=== PATIENT | female | born 1985 | race Caucasian/White ===

== ENCOUNTER → 2016-09-15 | Outpatient (CLI) | payer SELFPAY ==
[2016-09-15 14:51] LABS: BASOPHILS # (AUTO) 0.02 10*3/UL; BASOPHILS % (AUTO) 0.2 % (0-1); EOSINOPHILS % (AUTO) 0.6 % (0-8); HEMATOCRIT 37.4 % (37.0-47.0); HEMOGLOBIN 12.8 g/dL (12.0-16.0); IMM GRAN % (AUTO) 0.2 % (0-5); IMM GRAN# (AUTO) 0.02 10*3/UL; LYMPHOCYTES # (AUTO) 1.73 10*3/uL; MEAN CORPUSCULAR HEMOGLOBIN 28.9 PG (27-31); MEAN CORPUSCULAR HGB CONC 34.2 g/dL (33-37); MEAN PLATELET VOLUME 9.5 FL (7.4-12.2); MONOCYTES % (AUTO) 6.2 % (5-15); NEUTROPHILS # (AUTO) 7.18 10*3/UL; NEUTROPHILS % (AUTO) 74.8 % (50-80); RDW COEFFICIENT OF VARIATION 13.5 % (11.5-14.5); RED BLOOD COUNT 4.43 10^6/uL (4.20-5.40); WHITE BLOOD COUNT 9.61 10^3/uL (4.8-10.8)
[2016-09-15 14:58] LABS: PLATELET MORPHOLOGY COMMENT NORMAL MORPHOLOGY (NORM)
[2016-09-15 15:06] LABS: PRENATAL QUESTION YES (Y)
[2016-09-15 15:18] LABS: HIV ANTIBODY NEGATIVE (N); HIV-1 P24 ANTIGEN NEGATIVE (N)
[2016-09-18 09:32] LABS: HEP B SURFACE AG Negative (Negative)
[2016-09-18 13:56] LABS: RUBELLA IGG INDEX 5.1 (()); SYPHILIS IGG WITH REFLEX Negative (Negative)
== END ==
LOC: MOB LAB 13:31
PROVIDERS: ATTEND Family Medicine
DX: Z36 Encounter for antenatal screening of mother (principal)
CPT/HCPCS: 80081; 86900; 86901; 87088

== ENCOUNTER → 2016-10-16 | Outpatient (CLI) | payer SELFPAY | LOC: MOB LAB 11:23 | PROVIDERS: ATTEND Family Medicine | DX: Z36 Encounter for antenatal screening of mother (principal); Z3A.16 16 weeks gestation of pregnancy | CPT/HCPCS: 87491; 87591 ==

== ENCOUNTER → 2016-11-12 | Outpatient (CLI) | payer SELFPAY ==
--- NOTE | 2016-11-12 14:25 | DI ---
US OB GTE 14 WEEKS,11/12/2016 8:48 AM: Clinical History: Routine screening for malformations. Previous Exam: None at this facility. Findings: Multiple grayscale and color Doppler sonographic images are obtained through the pelvis, and demonstr ate a single live intrauterine gestation in vertex presentation. Amniotic fluid level is normal. There is normal motion of the limbs. Detected Doppler heart tones measure 149 beats per minute. Placenta is anterior and grade 1 without defects. Estimated gestational age was determined by a composite of biparietal diameter, head circumference, a bdominal circumference and femur length yielding an estimated gestational age by ultrasound of 21 wee ks one day. Estimated weight is 417 g (85th percentile). Impression: Single live intrauterine gestation with size equal to dates. No anatomic abnormality.
== END ==
LOC: US 08:45
PROVIDERS: ATTEND Family Medicine
DX: Z36 Encounter for antenatal screening of mother (principal); Z3A.20 20 weeks gestation of pregnancy
CPT/HCPCS: 76805

== ENCOUNTER → 2017-01-05 | Outpatient (CLI) | payer OTHER ==
[2017-01-05 10:25] LABS: HEMATOCRIT 36.3 % (37.0-47.0); HEMOGLOBIN 12.2 g/dL (12.0-16.0); MEAN CORPUSCULAR HEMOGLOBIN 29.3 PG (27-31); MEAN CORPUSCULAR HGB CONC 33.6 g/dL (33-37); MEAN CORPUSCULAR VOLUME 87.1 FL (81-99); RED BLOOD COUNT 4.17 10^6/uL (4.20-5.40)
[2017-01-05 10:26] LABS: MEAN PLATELET VOLUME 9.1 FL (7.4-12.2)
== END ==
LOC: LAB 08:55
PROVIDERS: ATTEND Family Medicine
DX: Z36 Encounter for antenatal screening of mother (principal); Z3A.28 28 weeks gestation of pregnancy
CPT/HCPCS: 36415; 82950; 84443; 85027

== ENCOUNTER 2017-01-21 13:07 | Outpatient (CLI) | payer OTHER ==
[2017-01-21] MEDS ORDERED: NORMAL SALINE 10 ML SYRINGE FLUSH IVP PRN (13:13)
[2017-01-21 13:23] VITALS: RESP 16; TEMP 98
--- NOTE | 2017-01-21 13:51 | PDOC(PROG) ---
Intake - - Reason for Visit/Chief Complaint: BP Monitoring, NST Additional Reason(s) for Visit: pain during/after intercourse Admitted From: Home - Estimated Due Date: 03/28/17 Gestational Age in Weeks and Days: 30 Weeks and 4 Days : 4 Para: 2 Term Births: 2 Births: 0 Number of Abortions (Spont./Elective): 1 Living Children: 2 - Labs Blood Type and Rh: O+ Maternal - Vital Signs Last Taken Vital Signs: Vital Signs - Last Taken Temperature 98.0 F 01/21/17 13:07 Pulse Rate 80 01/21/17 13:07 Respiratory Rate 16 01/21/17 13:07 Blood Pressure 125/65 01/21/17 13:07 Pulse Ox 99 01/21/17 13:07 - Uterine Activity Uterine Contraction Monitor Mode: External Uterine Tone Measurement Phase: soft - Vaginal Discharge Vaginal Bleeding Amount: None Vaginal Discharge Amount: None Monitoring - Uterine Activity Uterine Contraction Monitor Mode: External Uterine Tone Measurement Phase: soft Assessment and Plan - Patient Problems (1) Vaginal pain Current Visit: Yes Status: Acute - Assessment / Plan Additional Assessment/Plan Details: Pt presented to L&D with complaints of pain the morning after or the day after sexual intercourse. She does note that she had some increased vaginal varicose veins after delivery of her second baby, but those went away with time. She does also have some vaginal discharge, maybe a little bit of an odor, but no itching. Denies vag bleeding, contraction pain, cramping or gushes of fluid. Baby is active. O: on exam, pt does have significant swelling of her labia minora with some varicosities noted. No other lesions noted. Hope: no contractions FHT: moderate variability, no decels noted. + accels. A/p: 31 yo at 30 weeks, with vaginal venous congestion and discharge. -wet prep pending. -discussed resting as much as possible on right side to help reduce venous congestion -f/u: 2 weeks in the office/sooner prn.
== END 2017-01-21 14:12 | disposition home or self-care (01) ==
LOC: OBOP 13:07
PROVIDERS: ATTEND Family Medicine
DX: O26.893 Other specified pregnancy related conditions, third trimester (principal); R10.2 Pelvic and perineal pain; Z3A.30 30 weeks gestation of pregnancy
CPT/HCPCS: 59025; 87480; 87510; 87660; 99211

== ENCOUNTER → 2017-03-04 | Outpatient (CLI) | payer OTHER | LOC: MOB LAB 10:23 | PROVIDERS: ATTEND Family Medicine | DX: Z36 Encounter for antenatal screening of mother (principal); Z3A.36 36 weeks gestation of pregnancy | CPT/HCPCS: 87150 ==

== ENCOUNTER 2017-03-28 05:15 | Inpatient (IN) | payer SELFPAY ==
[2017-03-28] MEDS ORDERED: NORMAL SALINE 10 ML SYRINGE FLUSH IVP PRN ×2 (05:47→18:36)
[2017-03-28] MEDS ORDERED: Famotidine Inj 20 MG in Normal Saline Flush 10 ML IVP PRN ×4 (05:47)
[2017-03-28] MEDS ORDERED: LIDOCAINE W/ SODIUM BICARB 0.5 ML SYR SUBD PRN (05:47)
[2017-03-28] MEDS ORDERED: diphenhydrAMINE 50 MG/1 ML VIAL IVP PRN ×2 (05:47→18:36)
[2017-03-28] MEDS ORDERED: ONDANSETRON 4 MG/2 ML VIAL IVP PRN ×2 (05:47→18:36)
[2017-03-28] MEDS ORDERED: BUTORPHANOL TARTRATE 2 MG/1 ML VIAL IVP PRN (05:47)
[2017-03-28] MEDS ORDERED: Phenylephrine Inj 50 MCG in Normal Saline Flush 0.5 ML IVP PRN (05:47)
[2017-03-28] MEDS ORDERED: Naloxone Inj 0.01 MG in Normal Saline Flush 1 ML IVP PRN (05:47)
[2017-03-28] MEDS ORDERED: Carboprost Inj 250 MCG/ML AMP IM PRN ×2 (05:47→18:36)
[2017-03-28] MEDS ORDERED: TERBUTALINE SULFATE 1 MG/1 ML SDV SUBCUT PRN (05:47)
[2017-03-28] MEDS ORDERED: Lidocaine 1% 10 MG/ML - 20 ML VIAL SUBCUT PRN (05:47)
[2017-03-28] MEDS ORDERED: OXYTOCIN 10 UNIT/1 ML IM PRN (05:47)
[2017-03-28] MEDS ORDERED: Nalbuphine Inj 20 MG/ML Ampule IVP PRN ×2 (05:47→18:36)
[2017-03-28] MEDS ORDERED: CITRIC ACID/SODIUM CITRATE 30 ML CUP PO PRN (05:47)
[2017-03-28] MEDS ORDERED: Metoclopramide Inj 10 MG/2 ML VIAL IV PRN (05:47)
[2017-03-28] MEDS ORDERED: MISOPROSTOL 200 MCG TABLET RECTAL PRN (05:47)
[2017-03-28] MEDS ORDERED: fentaNYL Inj 100 MCG/2 ML VIAL IV PRN (05:47)
[2017-03-28] MEDS ORDERED: ePHEDrine Inj 5 MG in Normal Saline Flush 1 ML IVP PRN (05:47)
[2017-03-28] MEDS ORDERED: CefOXitin Inj 2 GM in Sodium Chloride 0.9% 100 ML IV PRN (05:47)
[2017-03-28] MEDS ORDERED: CALCIUM CARBONATE 500 MG (TUMS) CHEWABLE TABLET PO PRN ×2 (05:47→18:36)
[2017-03-28] MEDS ORDERED: METHYLERGONOVINE MALEATE 0.2 MG/1 ML VIAL IM PRN ×2 (05:47→18:36)
[2017-03-28] MEDS ORDERED: NALOXONE 0.4 MG/1 ML VIAL IVP PRN (05:47)
[2017-03-28] MEDS ORDERED: Oxytocin 20 Units + LR 1,000 ML IV SCH ×3 (06:00→18:36)
[2017-03-28 06:08] LABS: HEMATOCRIT 37.6 % (37.0-47.0); HEMOGLOBIN 13.1 g/dL (12.0-16.0); MEAN CORPUSCULAR HEMOGLOBIN 29.4 PG (27-31); MEAN CORPUSCULAR HGB CONC 34.8 g/dL (33-37); MEAN CORPUSCULAR VOLUME 84.5 FL (81-99); MEAN PLATELET VOLUME 10.1 FL (7.4-12.2); RED BLOOD COUNT 4.45 10^6/uL (4.20-5.40)
[2017-03-28] MEDS: Lactated Ringers-OB Dept 1,000 ML PRIMARY IV SCH ×3 (09:40→13:11)
[2017-03-28] MEDS ORDERED: Fent/Bupiv 2mcg/0.0625% Epid 250 ML ONE (09:55)
--- NOTE | 2017-03-28 10:16 | CRNA.PROCE ---
Central Neuraxis Block Placemt - - Safety Measures: Time Out Taken, Site Verified - - Type of Block: Epidural Reason for Block: Analgesia Moniters Used During Block: EKG, SPO2, NIBP Positioning: Sitting Skin Prep Used: ChloroPrep Draped: Yes Skin Infiltration - Enter Amount Used in Comment Field: 1% Xylocaine (mL): Yes ( skinwheal) Spinal Needle Used: 18 Hustead 80 mm Local Anesthetic - Enter Amount Used in Comment Field: 1.5 % Xylocaine with Epinephrine 1:200,000 (mL): Yes (5ml) Number of Centimeters Catheter Threaded: 4 Bioclusive Dressing Applied: Yes
[2017-03-28] MEDS ORDERED: fentaNYL 2 MCG/BUPIVACAINE 0.0625%/NS 0.9% 250 ML BAG EPIDURAL SCH (10:30)
--- NOTE | 2017-03-28 10:54 | OB.PROGRES ---
Date and Time of Service: 03/28/17 @ 1030 Interval History: Pt is a 31 yo at 40 weeks today who presented this morning in labor. She reports painful contractions at home and then was advised to come in to be checked. Denies any vag bleeding or gushes of fluid. Baby has been moving normally. Pt has had 2 uncomplicated vaginal deliveries right around 40 weeks. Did need AROM and pitocin augmentation with both babies. Objective - Cervical Exam Cervical Exam: 5/80/-1, vertex [place]: irregular, every 4-7 minutes, palpating mild to moderate Heart Rate: 135, moderate variability, + accels. No decels present. Heart Rate Interpretation Category: Category I - Labs CBC and BMP: 03/28/17 06:00 Labs - Last 24 Hours: Laboratory Results 03/28/17 Range/Units 06:00 WBC 10.65 (4.8-10.8) 10^3/uL RBC 4.45 (4.20-5.40) 10^6/uL Hgb 13.1 (12.0-16.0) g/dL Hct 37.6 (37.0-47.0) % MCV 84.5 (81-99) FL MCH 29.4 (27-31) PG MCHC 34.8 (33-37) g/dL RDW Std Deviation 42.1 (39-50) fL RDW Coeff of Jessica 14.0 (11.5-14.5) % Plt Count 203 (140-350) 10*3/uL MPV 10.1 (7.4-12.2) FL - Vital Signs Last Taken Vital Signs: Vital Signs - Last Taken Temperature 97.9 F 03/28/17 09:30 Pulse Rate 87 03/28/17 09:30 Respiratory Rate 18 03/28/17 09:30 Blood Pressure 119/61 03/28/17 09:30 Pulse Ox 98 03/28/17 06:00 Assessment and Plan - Patient Problems (1) Active labor at term Current Visit: Yes Status: Acute - Assessment / Plan Additional Assessment/Plan Details: -GBS negative. -has an epidural for pain control. -AROM completed with a small amount of mild-moderate meconium present. -anticipate normal vaginal delivery.
--- NOTE | 2017-03-28 16:40 | OB.DEL.SUM ---
Delivery Note Delivery Summary: Antonella is a 31 yo G4 now P3 at 40 weeks by early u/s who presented today with painful uterine contractions at home. There was no leakage of fluid or vaginal discharge at admission. She had slow cervical change until 1000, so an epidural was placed for analgesia per pt request and amniotomy was performed. Amniotic fluid was moderately meconium stained. The pt continued to have sporadic, irregular contractions, so pitocin augmentation was started. She progressed to c /c/+1 at 1445. She began pushing at 1510 and delivered a viable male infant in the ARIS presentation, over an intact perineum, at 1531. The nose and mouth were suctioned with a bulb suction and the cord was clamped by myself and cut by the father of the baby. Baby was vigorous and crying and was placed on mom's chest. Cord blood and cord gases were obtained for analysis. The placenta delivered a short time later, spontaneously and intact, with a 3 vessel cord. There was a moderate amount of vaginal bleeding noted after the placenta delivered, so methergine was given IM. This resulted in improved hemostasis. The vagina and perineum were examined and a superficial, first degree bilateral perineal laceration was noted and repaired in the normal fashion with 3-0 vicryl rapide suture. Apgars were 9 at 1 minute and 9 at 5 minutes. Baby weighed 9#1oz was 20.5" long. EBL 300 cc. Sponge and needle counts were correct at the end of the delivery. - Patient Problems (1) Active labor at term Current Visit: Yes Status: Acute
[2017-03-28] MEDS ORDERED: HYDROcodone-APAP 5 MG -325 MG TABLET PO PRN (18:36)
[2017-03-28] MEDS ORDERED: LANOLIN HPA 40 GM TUBE TOPICAL PRN (18:36)
[2017-03-28] MEDS ORDERED: BENZOCAINE/MENTHOL SPRAY 56 GM BOTTLE TOPICAL PRN (18:36)
[2017-03-28] MEDS ORDERED: OXYTOCIN 10 UNIT/1 ML IM ONE (18:36)
[2017-03-28] MEDS ORDERED: GLYCERIN/WITCH HAZEL 1 BOX TOPICAL PRN (18:36)
[2017-03-28] MEDS ORDERED: ACETAMINOPHEN 325 MG TABLET PO PRN (18:36)
[2017-03-28] MEDS ORDERED: MISOPROSTOL 200 MCG TABLET RECTAL ONE (18:36)
[2017-03-28] MEDS ORDERED: Ondansetron ODT Tab 4 MG TAB PO PRN (18:36)
[2017-03-28] MEDS ORDERED: diphenhydrAMINE 25 MG CAPSULE PO PRN (18:36)
[2017-03-28] MEDS ORDERED: DIPH,PERTUSS,TET(ADACEL) VAC/PF 0.5 ML (Tdap) IM ONE (18:36)
[2017-03-28] MEDS ORDERED: Methylergonovine Tab 0.2 MG TAB PO PRN (18:36)
[2017-03-28] MEDS: IBUPROFEN 800 MG TABLET PO PRN (19:34)
[2017-03-28] MEDS: DOCUSATE 100 MG CAPSULE PO SCH (21:45)
[2017-03-29] MEDS: IBUPROFEN 800 MG TABLET PO PRN ×2 (05:12→12:35)
[2017-03-29 05:25] LABS: HEMATOCRIT 35.6 % (37.0-47.0); HEMOGLOBIN 11.9 g/dL (12.0-16.0); MEAN CORPUSCULAR HGB CONC 33.4 g/dL (33-37); MEAN CORPUSCULAR VOLUME 86.6 FL (81-99); MEAN PLATELET VOLUME 10.2 FL (7.4-12.2); RED BLOOD COUNT 4.11 10^6/uL (4.20-5.40)
[2017-03-29] MEDS: DOCUSATE 100 MG CAPSULE PO SCH (08:49)
[2017-03-29] MEDS ORDERED: Prenatal Multivitamin Tab 1 TAB TAB PO SCH (09:00)
[2017-03-29 12:40] VITALS: RESP 18
--- NOTE | 2017-03-29 13:21 | CRNA.PROGR ---
Anesthesia Note Anesthesia Progress Note: Post labor epidural 03/28/17. She denies headache, backache, nausea. Pleased with labor epidural.
[2017-03-29 13:51] VITALS: TEMP 98.5
--- NOTE | 2017-03-29 15:37 | OB.PROGRES ---
Subjective Post Day: 1 Pain Management: PO [place] Catheter: No Flatus: Yes Diet: Regular [place] Feeding Method: Exculsively Ambulating: Yes Concerns / Additional Information: No complaints. States that bleeding and pain are much better than with her previous 2 deliveries. Objective - General General Appearance: POSITIVE: No Acute Distress, Cooperative - Cardiovacular Cardiovascular Exam: POSITIVE: RRR, No Murmur, No Clicks, No Gallops Edema: +1 Pedal Edema Extremities: Negative Charisse's - Bilaterally - Respiratory Respiratory Exam: POSITIVE: Clear to Auscultation - Bilaterally, Breathing Non Labored Assesstment / Plan (1) Vaginal delivery Current Visit: Yes Status: Acute Assessment / Plan: -routine cares. -rh positive. -rubella immune. -breast feeding well. -ok to d/c home today with routine 6 week followup.
== END 2017-03-29 17:17 | disposition home or self-care (01) | DRG 775 ==
LOC: OBIP 05:15
PROVIDERS: ADMIT Family Medicine; ATTEND Family Medicine
PROC: 10E0XZZ Delivery of Products of Conception, External Approach (ICD-10-PCS; principal; 2017-03-28)
PROC: 0HQ9XZZ Repair Perineum Skin, External Approach (ICD-10-PCS; 2017-03-28)
DX: O70.0 First degree perineal laceration during delivery (principal); Z3A.40 40 weeks gestation of pregnancy; Z37.0 Single live birth
CPT/HCPCS: 36415; 85027; J2210; J7120